=== PATIENT | female | born 1995 | race Caucasian/White ===

== ENCOUNTER 2020-03-21 16:32 | Observation (INO) ==
[2020-03-21] MEDS ORDERED: LORazepam 2 MG/1 ML VIAL IV STA (16:49)
[2020-03-21 17:02] LABS: Basophils % 0.3 % (0.0-0.8); Eosinophils % 0.4 % (0.00-10.9); Hematocrit 33.3 VOL% (35.7-47.0); Hemoglobin 11.4 GM/DL (12.0-16.0); Immature Granulocytes % 0.4 %; Immature Granulocytes Absolute 0.04 #; Lymphocytes # 2.8 10*3/uL (1.4-4.0); Lymphocytes % 27.5 % (21.3-54.2); Mean Corpuscular HGB Conc 34.2 GM/DL (32-36); Mean Corpuscular Volume 81.6 FL (87-102); Monocytes % 9.8 % (1.7-12.7); Neutrophils % 61.6 % (38.7-73.9); Platelet Count 241 T/CUMM (130-400); Red Blood Count 4.08 MC/CUMM (3.8-5.5); Red Cell Distribution Width 13.8 % (9.3-17.3)
[2020-03-21 17:37] LABS: Albumin 3.8 G/DL (3.4-5.0); Bilirubin,Total 1.7 MG/DL (0.2-1.0); Calcium 9.1 MG/DL (8.5-10.1); Osmolality,Calculated 277.3 MOS/KG (273-304)
[2020-03-21] MEDS ORDERED: POTASSIUM CHLORIDE 20 MEQ TABLET PO STA (18:02)
[2020-03-21] MEDS ORDERED: ONDANSETRON 4 MG/2 ML VIAL IV PRN (18:57)
[2020-03-21] MEDS ORDERED: GLUCAGON 1 MG VIAL IM PRN (18:57)
[2020-03-21] MEDS ORDERED: DEXTROSE 50% 25 GM/50 ML VIAL IV PRN (18:57)
[2020-03-21] MEDS ORDERED: traZODone 50 MG TABLET PO PRN (19:03)
[2020-03-21] MEDS ORDERED: HydrOXYzine PAMOATE 25 MG CAPSULE PO PRN (19:11)
[2020-03-21] MEDS ORDERED: METOPROLOL TARTRATE 25 MG TABLET PO SCH (21:00)
[2020-03-21] MEDS ORDERED: DOCUSATE SODIUM 100 MG CAPSULE PO PRN (21:00)
[2020-03-21] MEDS: POTASSIUM CHLORIDE 20 MEQ TABLET PO SCH (21:22)
[2020-03-21] MEDS: LACTATED RINGERS 1,000 ML IV SCH (21:22)
[2020-03-21 23:12] LABS: Apearance,Urine CLEAR (Clear); Bilirubin,Urine Negative (Negative); Blood, Urine Large mg/dL (Negative); Glucose,Urine (UA) Negative (Negative); Ketones,Urine 80 mg/dL (Negative); Nitrite,Urine Negative (Negative); Protein,Urine Negative; RBC,Urine 245 /HPF (0-4); Squamous Epithelial Cell,Urine Occasional /HPF (0-10); Urine Color Yellow (Yellow); Urine Specific Gravity 1.026 (1.001-1.035); Urine Urobilinogen < 2.0 EU/DL (0.2-1.0); WBC,Urine 5 /HPF (0-6)
[2020-03-21 23:13] LABS: Barbiturates Screen,Urine Negative (Negative); Benzodiazepines Screen,Urine Negative (Negative); Cannabinoid Screen,Urine Negative (Negative); Opiate Screen,Urine Negative (Negative); Phencyclidine Screen,Urine Negative (Negative)
[2020-03-22 05:25] LABS: Basophils % 0.5 % (0.0-0.8); Eosinophils # 0.1 10*3/uL (0.0-0.87); Eosinophils % 1.3 % (0.00-10.9); Hematocrit 34.4 VOL% (35.7-47.0); Hemoglobin 11.1 GM/DL (12.0-16.0); Immature Granulocytes % 0.4 %; Immature Granulocytes Absolute 0.03 #; Lymphocytes % 40.2 % (21.3-54.2); Mean Corpuscular HGB Conc 32.3 GM/DL (32-36); Mean Corpuscular Volume 85.6 FL (87-102); Mean Platelet Volume 10.2 FL (9.6-12.0); Monocytes % 8.5 % (1.7-12.7); Neutrophils % 49.1 % (38.7-73.9); Platelet Count 244 T/CUMM (130-400); Red Blood Count 4.02 MC/CUMM (3.8-5.5); Red Cell Distribution Width 14.2 % (9.3-17.3); White Blood Count 7.5 T/CUMM (4-12)
[2020-03-22 05:53] LABS: Folate 15.9 NG/ML (5.4-24.0); Vitamin B12 1287 PG/ML (211-911)
[2020-03-22 05:55] LABS: % Iron Saturation 5.1 % (18-50); Ferritin 54.4 ng/ml (8-252)
[2020-03-22 06:00] LABS: Calcium 8.9 MG/DL (8.5-10.1); Osmolality,Calculated 278.1 MOS/KG (273-304); Thyroid Stimulating Hormone 0.522 uIU/ml (0.358-3.74)
[2020-03-22] MEDS ORDERED: METOPROLOL TARTRATE 25 MG TABLET PO SCH (06:38)
[2020-03-22 07:05] LABS: Sedimentation Rate-Westergren 21 MM/HR (0-20)
[2020-03-22] MEDS ORDERED: FLUoxetine 20 MG CAPSULE PO SCH (09:00)
[2020-03-22] MEDS: POTASSIUM CHLORIDE 20 MEQ TABLET PO SCH (10:39)
[2020-03-22 16:11] VITALS: BP 92/50
[2020-03-22] MEDS: LACTATED RINGERS 1,000 ML IV SCH (17:40)
[2020-03-23] MEDS ORDERED: POTASSIUM CHLORIDE 20 MEQ TABLET PO SCH (09:00)
[2020-03-25 11:06] LABS: Hemoglobin A1 (Alkaline) 97.4 % (96.5-98.5); Hemoglobin A2 (Alkaline) 2.6 % (1.5-3.5)
== END 2020-03-22 18:07 | disposition home or self-care (01) ==
LOC: EDBD → EDUNIT# → N.EDINP 16:32 → N.ED 16:32 → SUATTDRO 18:27 → N.TELEN 19:22
PROVIDERS: ADMIT Hospitalist; ATTEND Internal Medicine